=== PATIENT | male | born 1985 | race African-American/Black ===

== ENCOUNTER 2022-07-24 02:58 | Emergency (ER) | payer MEDICAID ==
[~2022-07-24] VITALS: Ht 182.9 cm; Wt 108.9 kg
--- NOTE | 2022-07-24 02:58 | NUR ---
MANINDER TERRELL, PREBOOK. TAKEN TO ER CHAIR
[2022-07-24 03:02] VITALS: BP 168/114
--- NOTE | 2022-07-24 03:07 | NUR ---
Patient being evaluated by physician
[2022-07-24 03:20] VITALS: BP 168/114
--- NOTE | 2022-07-24 03:20 | NUR ---
Patient D/C to custody.
== END 2022-07-24 03:20 ==
LOC: MED 02:58
DX: S20.222A Contusion of left back wall of thorax, initial encounter (principal); Z02.89 Encounter for other administrative examinations; I10 Essential (primary) hypertension; X58.XXXA Exposure to other specified factors, initial encounter; Y93.89 Activity, other specified; Y92.89 Other specified places as the place of occurrence of the external cause; Y99.8 Other external cause status
CPT/HCPCS: 99283